=== PATIENT | female | born 1960 | race Caucasian/White ===

== ENCOUNTER 2024-03-16 10:13 | Outpatient (CLI) | payer BC | END 2024-03-16 10:14 | disposition home or self-care (01) | LOC: CSHMAMMO 10:13 | PROVIDERS: ATTEND Obstetrics & Gynecology | DX: M81.0 Age-related osteoporosis without current pathological fracture (principal); M85.851 Other specified disorders of bone density and structure, right thigh; M85.852 Other specified disorders of bone density and structure, left thigh | CPT/HCPCS: 77080 ==